=== PATIENT | male | born 1990 | race Caucasian/White ===

== ENCOUNTER 2016-09-10 09:38 | Emergency (ER) | payer SELFPAY ==
[~2016-09-10] VITALS: Wt 81.8 kg
[2016-09-10] MEDS ORDERED: HYDROCODONE/APAP (5/325) TAB PO ONE (10:00)
--- NOTE | 2016-09-10 10:05 | ERD ---
ER Documentation Chief Complaint Date/Time DATE: 09/10/16 TIME: 10:02 Chief Complaint "rolled l. ankle" HPI This a 25-year-old male who presents the emergency department today complaining of pain in his left ankle and foot after sustaining an injury while skateboarding last night. Patient states he jumped off a skateboard and landed on his ankle. States he took Tylenol that helped with some pain. States he has sprained both of his ankles multiple times. Denies any fevers or chills. ROS All systems reviewed and are negative except as per history of present illness. Medications Home Meds Active Scripts Tramadol HCl (Tramadol HCl) 50 Mg Tablet, 50 MG PO Q4 Y for PAIN, #20 TAB Prov:BRENDAN ROSALES PA-C 09/10/16 Naproxen* (Naprosyn*) 500 Mg Tablet, 500 MG PO BID Y for PAIN AND/OR INFLAMMATION, #30 TAB Prov:BRENDAN ROSALES PA-C 09/10/16 PMhx/Soc Medical and Surgical Hx: pt denies Medical Hx, pt denies Surgical Hx History of Surgery: No Anesthesia Reaction: No Hx Neurological Disorder: No Hx Respiratory Disorders: No Hx Cardiac Disorders: No Hx Psychiatric Problems: No Hx Miscellaneous Medical Probl: No Hx Alcohol Use: No Hx Substance Use: No Hx Tobacco Use: No Smoking Status: Former smoker Physical Exam Vitals Vital Signs Date Time Temp Pulse Resp B/P Pulse Ox O2 Delivery O2 Flow Rate FiO2 09/10/16 09:41 97.7 81 20 131/69 99 Physical Exam Const: Pleasant, no acute distress Head: Atraumatic Eyes: Normal Conjunctiva ENT: Normal External Ears, Nose and Mouth. Neck: Full range of motion..~ No meningismus. Resp: Clear to auscultation bilaterally Cardio: Regular rate and rhythm, no murmurs Skin: No petechiae or rashes. Ecchymosis left foot and left ankle MSK: Left foot and ankle with no obvious deformity. Moderate effusion over left ankle. Ecchymosis left ankle and foot lateral aspect. Tenderness to palpation medial and lateral malleolus and fifth metatarsal. Decreased range of motion secondary to pain. Nontender navicular. Pulses 2+. Distal neurovascularly intact. Neur: Awake and alert Psych: Normal Mood and Affect Results 24 hrs Current Medications Medications (Trade) Dose Ordered Sig/Ana María Route PRN Reason Start Time Stop Time Status Last Admin Dose Admin Acetaminophen/ Hydrocodone Bitart (Almond (5/325)) 1 tab ONCE ONCE PO 09/10/16 10:00 09/10/16 10:02 DC 09/10/16 10:08 DIAGNOSTIC IMAGING REPORT Patient: СВЕТЛАНА ROLDAN : 1990 Age: 25 Sex: M MR #: [id number] DOS: 09/10/16 0000 Ordering MD: BRENDAN ROSALES PA-C Location: [facility] Room/Bed: PROCEDURE: XR Ankle. CLINICAL INDICATION: Pain. TECHNIQUE: AP, lateral, and oblique views of the left ankle were performed. COMPARISON: None. FINDINGS: The osseous structures and articular spaces of the left ankle appear intact. No acute fracture or dislocation is seen. No radiopaque foreign body is identified. There is lateral soft tissue swelling. IMPRESSION: 1. Lateral soft tissue swelling. 2. No acute fracture or dislocation.. RPTAT: QQ .Rodríguez Yuan MD, MD Date Time Electronically viewed and signed by .Rodríguez Yuan MD, on 09/10/2016 11:02 .L/ CC: BRENDAN ROSALES PA-C DIAGNOSTIC IMAGING REPORT Patient: СВЕТЛАНА ROLDAN : 1990 Age: 25 Sex: M MR #: [id number] DOS: 09/10/16 0000 Ordering MD: BRENDAN ROSALES PA-C Location: [facility] Room/Bed: PROCEDURE: XR Foot. CLINICAL INDICATION: Left foot pain. trauma. Skateboard accident. TECHNIQUE: AP, oblique, and lateral views of the left foot are available for review. COMPARISON: None available FINDINGS: The osseous structures, articular spaces, and surrounding soft tissues are intact. No acute fracture or dislocation is seen. No radiopaque foreign body is identified. Bony mineralization is normal. IMPRESSION: 1. Unremarkable left foot x-ray series. RPTAT: QQ .Rodríguez Yaun MD, MD Date Time Electronically viewed and signed by .Rodríguez Yuan MD, on 09/10/2016 11:01 .L/ CC: BRENDAN ROSALES PA-C Procedures/MDM This a 25-year-old male who presents to the emergency department today for left foot and ankle pain after sustaining an injury falling off a skateboard last night. 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 Patient had a significant amount of swelling over his ankle as well as ecchymosis in his foot and ankle and tenderness and therefore did obtain images per Per the radiology report images of the left ankle show lateral soft tissue swelling. There is no acute fracture dislocation. Images of the left foot are unremarkable. There is no acute fracture dislocation. Symptoms at this time is consistent with sprain versus strain versus contusion. Patient is afebrile and otherwise well-appearing. Low suspicion for septic joint or gout. Patient was given Almond here in the emergency department. I will give him a short course of tramadol as well as Naprosyn for home. Patient was given crutches to help ambulate. He was also given an Aircast. At this time the patient is stable for discharge and outpatient management. Patient should follow up with their PCP in the next 1-2 days. They may return to the emergency department sooner for any persistent or worsening of symptoms. Patient understood and agreed with the plan. Departure Diagnosis: Primary Impression: Ankle injury Encounter type: initial encounter Laterality: left Qualified Code: S99.912A - Ankle injury, left, initial encounter Condition: Fair BRENDAN ROSALES PA-C Sep 10, 2016 10:05
--- NOTE | 2016-09-10 11:02 | RADRPT ---
PROCEDURE: XR Foot. CLINICAL INDICATION: Left foot pain. trauma. Skateboard accident. TECHNIQUE: AP, oblique, and lateral views of the left foot are available for review. COMPARISON: None available FINDINGS: The osseous structures, articular spaces, and surrounding soft tissues are intact. No acute fractur e or dislocation is seen. No radiopaque foreign body is identified. Bony mineralization is normal. IMPRESSION: 1. Unremarkable left foot x-ray series. RPTAT: QQ .Rodríguez Yuan MD, MD Date Time Electronically viewed and signed by .Rodríguez uYan MD, MD on 09/10/2016 11:01 .L/
--- NOTE | 2016-09-10 11:02 | RADRPT ---
PROCEDURE: XR Ankle. CLINICAL INDICATION: Pain. TECHNIQUE: AP, lateral, and oblique views of the left ankle were performed. COMPARISON: None. FINDINGS: The osseous structures and articular spaces of the left ankle appear intact. No acute fracture or dislocation is seen. No radiopaque foreign body is identified. There is lateral soft tissue swellin g. IMPRESSION: 1. Lateral soft tissue swelling. 2. No acute fracture or dislocation.. RPTAT: QQ .Rodríguez Yuan MD, MD Date Time Electronically viewed and signed by .Rodríguez Yuan MD, MD on 09/10/2016 11:02 .L/
[2016-09-10] MEDS ORDERED: NAPR-260 PO (11:38)
[2016-09-10] MEDS ORDERED: TRAM50TA2 PO (11:39)
== END 2016-09-10 11:51 | disposition home or self-care (01) ==
LOC: FTE 09:38 → EDSEX 09:38 → FTE 11:51
DX: S99.912A Unspecified injury of left ankle, initial encounter (principal); V00.131A Fall from skateboard, initial encounter; Y92.9 Unspecified place or not applicable; Z87.891 Personal history of nicotine dependence
CPT/HCPCS: 73610